=== PATIENT | male | born 1965 | race Caucasian/White ===

== ENCOUNTER → 2020-05-08 | Outpatient (CLI) | payer MEDICARE | LOC: KOH-I 12:47 | DX: M87.9 Osteonecrosis, unspecified (principal); M16.0 Bilateral primary osteoarthritis of hip; R93.6 Abnormal findings on diagnostic imaging of limbs; M89.8X8 Other specified disorders of bone, other site | CPT/HCPCS: 73721 ==

== ENCOUNTER → 2020-10-15 | Outpatient (CLI) | payer MEDICARE | LOC: ECHO 08:55 → CT 10:30 | DX: M34.9 Systemic sclerosis, unspecified (principal) | CPT/HCPCS: ECHO; 71250; 93306 ==

== ENCOUNTER → 2021-04-08 | Outpatient (CLI) | payer MEDICARE ==
[~2021-04-08] MED LIST: AMLODIPINE BESY10 MG PO; ASPIRIN 325MG325 MG PO; CELEBREX200 MG PO; COLCHICINE0.6 MG PO; OXCARBAZEPINE300 MG PO; PREDNISONE2.5 MG PO; SILDENAFIL20 MG PO; TYLENOL 8 HOUR650 MG PO
[2021-04-08 10:29] LABS: HEMOGLOBIN 14.3 gm/dl (14.0-17.5); RED BLOOD COUNT 4.6 M/UL (4.20-5.50); WHITE BLOOD COUNT 7.3 K/UL (4.5-11.0)
[2021-04-08 10:55] LABS: BUN/CREATININE RATIO 9 (0-10)
== END ==
LOC: EDSTATUS 09:00 → OPSV2 09:00
PROVIDERS: Orthopaedic Surgery
DX: Z01.818 Encounter for other preprocedural examination (principal); M16.12 Unilateral primary osteoarthritis, left hip
CPT/HCPCS: 36415; 80048; 85025; 93005

== ENCOUNTER → 2021-04-13 | Outpatient (CLI) | payer MEDICARE, OTHER ==
[~2021-04-13] MED LIST changes: +PERCOCET 5-3251 EACH PO
[2021-04-13 09:50] LABS: BUN/CREATININE RATIO 10 (0-10)
== END ==
LOC: LAB 08:59
PROVIDERS: Orthopaedic Surgery
DX: Z01.812 Encounter for preprocedural laboratory examination (principal); M17.12 Unilateral primary osteoarthritis, left knee
CPT/HCPCS: 36415; 80048; 86850; 86900; 86901

== ENCOUNTER → 2021-04-15 | Day surgery (SDC) | payer MEDICARE, OTHER | END | disposition home or self-care (01) | LOC: OR 05:25 → EDSTATUS 13:15 → OR 13:15 | DX: M06.852 Other specified rheumatoid arthritis, left hip (principal); G89.29 Other chronic pain; M34.9 Systemic sclerosis, unspecified; I73.00 Raynaud's syndrome without gangrene; Z88.8 Allergy status to other drugs, medicaments and biological substances; Z79.82 Long term (current) use of aspirin; Z79.899 Other long term (current) drug therapy; Z20.822 Contact with and (suspected) exposure to COVID-19 | CPT/HCPCS: 72170; 73502; 76000; 97116; 97161; 97165; 97530; C1776; J0592; J0690; J1100; J1200; J1885; J2250; J2704; J2710; J2795; J3010; J3370; J3475; J7030; J7050; J7120 ==